=== PATIENT | male | born 2000 | race Caucasian/White ===

== ENCOUNTER 2023-03-08 22:14 | Emergency (ER) | payer OTHER ==
[~2023-03-08] VITALS: Ht 182.9 cm; Wt 81.6 kg
[2023-03-08 22:55] VITALS: BP_SYST 145; PULSE 53; RESP 20; TEMP 98.7; O2SAT 97
[2023-03-08 23:23] LABS: BILIRUBIN,URINE NEGATIVE (NEGATIVE); BLOOD, URINE NEGATIVE (NEGATIVE); CLARITY/URINE CLEAR (CLEAR); COLOR,URINE YELLOW (YELLOW); GLUCOSE,URINE NEGATIVE (NEGATIVE); KETONES,URINE TRACE (NEGATIVE); LEUKOCYTE ESTERASE ,URINE NEGATIVE (NEGATIVE); NITRITE, URINE NEGATIVE (NEGATIVE); PH,URINE 6.5 (5.0-8.0); PROTEIN URINE NEGATIVE (NEGATIVE); UROBILINOGEN,URINE 0.2 (0.2-1.0)
[2023-03-09 00:19] LABS: BASOPHILS % (AUTO) 0.3 % (0.0-2.0); EOSINOPHILS % (AUTO) 0.3 % (0.0-4.0); HEMATOCRIT 46.5 % (36-54); HEMOGLOBIN 15.7 g/dL (14.0-18.0); LYMPHOCYTES # (AUTO) 2.1 K/uL (1.0-5.5); LYMPHOCYTES % (AUTO) 22.5 % (20.5-51.5); MEAN CORPUSCULAR HEMOGLOBIN 29 pg (27-31); MEAN CORPUSCULAR HGB CONC 34 % (32-36); MEAN CORPUSCULAR VOLUME 86 fL (79.0-98.0); MONOCYTES # (AUTO) 0.7 K/uL (0.0-1.0); MONOCYTES % (AUTO) 8.1 % (1.7-9.3); NEUTROPHILS # (AUTO) 6.3 K/uL (1.8-7.7); NEUTROPHILS % (AUTO) 68.8 % (40.0-70.0); PLATELET COUNT (AUTO) 347 K/uL (130-430); RED BLOOD CELL COUNT(AUTO) 5.41 MIL/uL (4.2-6.2); RED CELL DISTRIBUTION WIDTH 12.9 % (9.0-15.0); WHITE BLOOD COUNT (AUTO) 9.2 K/uL (4.8-10.8)
[2023-03-09 00:30] LABS: CALCIUM 9.2 mg/dL (8.4-11.0); CREATININE 1.02 mg/dL (0.55-1.30)
[2023-03-09] MEDS ORDERED: KETOROLAC TROMETHAMINE 30 MG VIAL IM ONE (00:30)
[2023-03-09] MEDS ORDERED: ONDANSETRON 4 MG ODT TAB PO ONE (00:30)
[2023-03-09 00:35] LABS: ALBUMIN 4.9 g/dL (3.4-4.8); TOTAL BILIRUBIN 0.5 mg/dL (0.0-1.0)
[2023-03-09] MEDS ORDERED: ONDA-8 TL (03:20)
[2023-03-09] MEDS ORDERED: IBUP-1969 PO (03:20)
[2023-03-09 04:00] VITALS: BP_SYST 120; PULSE 66; RESP 16; TEMP 98; O2SAT 98
== END 2023-03-09 04:00 | disposition home or self-care (01) ==
LOC: SED 22:14
DX: K65.4 Sclerosing mesenteritis (principal); R10.30 Lower abdominal pain, unspecified; R06.02 Shortness of breath; F41.9 Anxiety disorder, unspecified; Z79.899 Other long term (current) drug therapy
CPT/HCPCS: 36415; 76376; 80053; 81003; 83690; 85025; 99284